=== PATIENT | female | born 1950 | race Caucasian/White ===

== ENCOUNTER → 2020-01-25 08:51 | Outpatient (BNVA) | payer MEDICARE, SELFPAY | PROVIDERS: Family Provider Nurse Practitioner Family; PCP Nurse Practitioner Family; Visit Provider Registered Nurse | DX: E11.9 Type 2 diabetes mellitus without complications (principal); I10 Essential (primary) hypertension; E03.9 Hypothyroidism, unspecified; E87.6 Hypokalemia | CPT/HCPCS: 80053; 80061; 83036; 84443; 85025 ==

== ENCOUNTER 2020-10-11 12:45 | Outpatient (CLI) | payer MEDICARE, SELFPAY ==
[2020-10-11 13:10] VITALS: BP 144/84; PULSE 64; RESP 14; TEMP 36.3; O2SAT 93
[2020-10-11 13:43] VITALS: BP 109/69; PULSE 63; O2SAT 91
[2020-10-11 14:51] VITALS: BP 120/73; PULSE 64; O2SAT 92
== END 2020-10-11 14:53 | disposition home or self-care (01) ==
PROVIDERS: PCP Registered Nurse; Visit Provider Registered Nurse
DX: U07.1 COVID-19 (principal)
CPT/HCPCS: 96365

== ENCOUNTER → 2021-02-01 11:05 | Outpatient (BNVA) | payer MEDICARE, SELFPAY | PROVIDERS: PCP Registered Nurse; Visit Provider Registered Nurse | DX: E53.8 Deficiency of other specified B group vitamins (principal); I10 Essential (primary) hypertension; E03.9 Hypothyroidism, unspecified; E78.5 Hyperlipidemia, unspecified; E11.9 Type 2 diabetes mellitus without complications; E55.9 Vitamin D deficiency, unspecified; L65.8 Other specified nonscarring hair loss | CPT/HCPCS: 80053; 80061; 81000; 82306; 82607; 83036; 84443; 85025 ==

== ENCOUNTER → 2021-05-16 09:07 | Outpatient (BNVA) | payer MEDICARE, SELFPAY | PROVIDERS: PCP Registered Nurse; Visit Provider Registered Nurse | DX: E11.65 Type 2 diabetes mellitus with hyperglycemia (principal); E03.9 Hypothyroidism, unspecified | CPT/HCPCS: 80053; 83036; 84443 ==

== ENCOUNTER → 2021-12-05 11:01 | Outpatient (BNVA) | payer MEDICARE, SELFPAY | PROVIDERS: PCP Registered Nurse; Visit Provider Registered Nurse | DX: E11.65 Type 2 diabetes mellitus with hyperglycemia (principal); E87.6 Hypokalemia; I10 Essential (primary) hypertension; E03.9 Hypothyroidism, unspecified | CPT/HCPCS: 80053; 80061; 83036; 84443; 85025 ==

== ENCOUNTER → 2022-03-07 09:42 | Outpatient (BNVA) | payer MEDICARE, SELFPAY | PROVIDERS: PCP Registered Nurse; Visit Provider Registered Nurse | DX: E11.65 Type 2 diabetes mellitus with hyperglycemia (principal) | CPT/HCPCS: 80053; 83036 ==

== ENCOUNTER → 2022-06-05 11:45 | Outpatient (BNVA) | payer MEDICARE, SELFPAY | PROVIDERS: PCP Registered Nurse; Visit Provider Registered Nurse | DX: E11.65 Type 2 diabetes mellitus with hyperglycemia (principal); R05.9 Cough, unspecified | CPT/HCPCS: 80053; 80061; 82043; 83036; 85025 ==

== ENCOUNTER → 2022-09-06 10:25 | Outpatient (BNVA) | payer MEDICARE, SELFPAY | PROVIDERS: PCP Registered Nurse; Visit Provider Registered Nurse | DX: E11.65 Type 2 diabetes mellitus with hyperglycemia (principal) | CPT/HCPCS: 80053; 83036 ==

== ENCOUNTER → 2023-01-15 09:40 | Outpatient (BNVA) | payer MEDICARE, SELFPAY | PROVIDERS: PCP Registered Nurse; Visit Provider Registered Nurse | DX: E11.65 Type 2 diabetes mellitus with hyperglycemia (principal); E03.9 Hypothyroidism, unspecified | CPT/HCPCS: 80053; 83036; 84443 ==

== ENCOUNTER → 2023-04-16 14:22 | Outpatient (BNVA) | payer MEDICARE, SELFPAY | PROVIDERS: PCP Registered Nurse; Visit Provider Registered Nurse | DX: I10 Essential (primary) hypertension (principal); E03.9 Hypothyroidism, unspecified; E11.65 Type 2 diabetes mellitus with hyperglycemia; R46.89 Other symptoms and signs involving appearance and behavior | CPT/HCPCS: 83036 ==

== ENCOUNTER → 2023-10-08 09:34 | Outpatient (BNVA) | payer MEDICARE, SELFPAY | PROVIDERS: PCP Registered Nurse; Visit Provider Registered Nurse | DX: E11.9 Type 2 diabetes mellitus without complications (principal) | CPT/HCPCS: 80053; 83036; 84443 ==

== ENCOUNTER → 2023-11-12 13:43 | Outpatient (BNVA) | payer MEDICARE, SELFPAY | PROVIDERS: PCP Registered Nurse; Visit Provider Registered Nurse | DX: I10 Essential (primary) hypertension (principal); E03.9 Hypothyroidism, unspecified | CPT/HCPCS: 84443 ==

== ENCOUNTER → 2024-01-10 10:47 | Outpatient (BNVA) | payer MEDICARE, SELFPAY | PROVIDERS: PCP Registered Nurse; Visit Provider Registered Nurse | DX: E11.9 Type 2 diabetes mellitus without complications (principal); E03.9 Hypothyroidism, unspecified | CPT/HCPCS: 83036; 84443 ==

== ENCOUNTER → 2024-06-23 08:28 | Outpatient (BNVA) | payer MEDICARE, SELFPAY | PROVIDERS: PCP Registered Nurse; Visit Provider Registered Nurse | DX: N93.9 Abnormal uterine and vaginal bleeding, unspecified (principal); E11.65 Type 2 diabetes mellitus with hyperglycemia | CPT/HCPCS: 80053; 80061; 81000; 83036; 85025; 87086 ==

== ENCOUNTER 2024-07-22 12:32 | Outpatient (CLI) | payer MEDICARE, SELFPAY ==
--- NOTE | 2024-07-22 13:00 | MRR_ITS ---
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 Exam focused on the uterus, cervix, and adnexa. Contrast material: MULTIHANCE; Contrast volume: 17 ml; Contrast route: INTRAVENOUS (IV); COMPARISON: No relevant prior studies available. FINDINGS: Uterus is anteverted mildly enlarged for patient's age measuring 8 x 5 x 4 cm. There is expansion of the endometrial cavity measuring up to 2 cm secondary to in enhancing mass within the uterine cavity measuring 4.7 x 2.8 cm best demonstrated on the delayed axial postcontrast T1 sequence (series 1501, image 25). Findings are consistent with history of endometrial cancer. Cervix is unremarkable. 8 x 7 cm multiloculated cystic mass posterior the left adnexa presumably arising from the left ovary and likely neoplastic in nature. There is minimal if any enhancement of this mass. There is a larger multiloculated cystic mass present anteriorly within the upper pelvis along the midline measuring 18 x 16 cm containing multiple T1 hyperdense cysts with T2 shading due to blood products or proteinaceous debris more typical cystic endometrioma but unusual in this patient's age group as well as its size. Urinary bladder is unremarkable. There is a trace amount of pelvic free fluid. No pelvic lymphadenopathy detected. Osseous structures are unremarkable for age. MR/MR pelvis wo/w con [id number] IMPRESSION: 1. 4.7 x 2.8 cm enhancing mass within the endometrial cavity consistent with history of endometrial malignancy. 2. 8 x 7 cm multiloculated left adnexal cystic mass presumably arising the left ovary likely neoplastic in nature but not obviously malignant. 3. 18 x 16 cm multiloculated cystic mass situated above the uterus along midline in the upper pelvis and lower abdomen with signal characteristics suggestive of a large cystic endometrioma by unusual view of the size and patient's age.
[2024-07-22] MEDS: gadobenate dimeglumine 20 mL vial 17 ML IV (13:47)
== END 2024-07-22 12:33 | disposition home or self-care (01) ==
LOC: RAD 12:35
PROVIDERS: PCP Registered Nurse; Visit Provider Registered Nurse
DX: C54.1 Malignant neoplasm of endometrium (principal); R93.89 Abnormal findings on diagnostic imaging of other specified body structures; N85.2 Hypertrophy of uterus
CPT/HCPCS: 72197

== ENCOUNTER → 2024-09-30 10:59 | Outpatient (BNVA) | payer MEDICARE, SELFPAY | PROVIDERS: PCP Registered Nurse; Visit Provider Registered Nurse | DX: E11.9 Type 2 diabetes mellitus without complications (principal) | CPT/HCPCS: 83036; 84443 ==

== ENCOUNTER → 2024-11-20 09:28 | Outpatient (BNVA) | payer MEDICARE, SELFPAY | PROVIDERS: PCP Registered Nurse; Visit Provider Registered Nurse | DX: I10 Essential (primary) hypertension (principal) | CPT/HCPCS: 80053; 85025 ==